=== PATIENT | female | born 1940 | race Caucasian/White ===

== ENCOUNTER 2020-11-11 10:16 | Day surgery (SDC) | payer OTHER, SELFPAY ==
[2020-11-05 10:05] VITALS: BMI 25.3
--- NOTE | 2020-11-07 09:01 | MHC.SHP ---
Pre-Procedural Eval Section A The patient is an INPATIENT: No The History & Physical has been completed within 30 days and I have reviewed it.: Yes Section B Chief Complaint: Cataract Left Eye Allergies: Allergies Allergy/AdvReac Type Severity Reaction Status Date / Time cephalexin [CEPHALEXIN] Allergy Intermediate Rash Verified 11/05/20 10:10 clarithromycin [From BIAXIN] Allergy Intermediate Rash Verified 11/05/20 10:10 Plan Diagnosis/Plan: Unchanged Patient has been examined and remains a candidate for the planned procedure
--- NOTE | 2020-11-08 13:43 | HO.ANESPROP2 ---
Documented by User: Jane Samuels 11/08/20 13:44 HPI - Anesthesia Eval Consult details Narrative: 80yo F for Cataract Extraction [facility] Past Medical History Medical History (Updated 11/05/20 @ 10:10 by Lexi Miranda) Arthritis Elevated cholesterol HTN (hypertension) Lab test negative for COVID-19 virus Wears partial dentures Surgical History Surgical History (Updated 11/05/20 @ 10:07 by Lexi Miranda) H/O colonoscopy Hx of right cataract extraction Hx of tubal ligation Social History Social History Smoking Status: Former smoker Smoked in Last 30 Days: No Smoking Quit Date: 06/2020 Use of substances other than those prescribed or required for medical reasons: Yes Substance Use Type Other:: vapes marijuana Substance Use Frequency: Occasionally Have you been hit, kicked, punched, or otherwise hurt by someone within the past year? If so, by whom?: No Advance Directives Information Provided: No Recently lost weight without trying: No Meds Allergies Allergy/AdvReac Type Severity Reaction Status Date / Time cephalexin [CEPHALEXIN] Allergy Intermediate Rash Verified 11/05/20 10:10 clarithromycin [From BIAXIN] Allergy Intermediate Rash Verified 11/05/20 10:10 Home Medications Medication Instructions Recorded Confirmed Type triamterene-hydrochlorothiazid 1 cap PO DAILY 11/05/20 11/05/20 History Exam Exam Date and Time: November 08, 2020 1343 Height,Weight and Vital Signs: Height 5 ft 4.5 in Weight 68.039 kg Assessment and Plan Assessment Anesthesia Assessment: Chart Reviewed Documented by User: Radhika Olmedo 11/11/20 12:14 [facility] Past Medical History Medical History (Updated 11/05/20 @ 10:10 by Lexi Miranda) Arthritis Elevated cholesterol HTN (hypertension) Lab test negative for COVID-19 virus Wears partial dentures Surgical History Surgical History (Updated 11/05/20 @ 10:07 by Lexi Miranda) H/O colonoscopy Hx of right cataract extraction Hx of tubal ligation Social History Social History Smoking Status: Former smoker Smoked in Last 30 Days: No Smoking Quit Date: 06/2020 Use of substances other than those prescribed or required for medical reasons: Yes Substance Use Type Other:: vapes marijuana Substance Use Frequency: Occasionally Have you been hit, kicked, punched, or otherwise hurt by someone within the past year? If so, by whom?: No Advance Directives Information Provided: No Recently lost weight without trying: No Meds Allergies Allergy/AdvReac Type Severity Reaction Status Date / Time cephalexin [CEPHALEXIN] Allergy Intermediate Rash Verified 11/05/20 10:10 clarithromycin [From BIAXIN] Allergy Intermediate Rash Verified 11/05/20 10:10 Home Medications Medication Instructions Recorded Confirmed Type triamterene-hydrochlorothiazid 1 cap PO DAILY 11/05/20 11/05/20 History Exam Airway Mallampati Class: II (Missing multiple teeth through out mouth) TM Dist: >3cm Neck ROM: Full Heart: RRR Lungs: CTA BL Assessment and Plan Assessment Anesthesia Assessment: Anesthesia Plan Discussed and Chart Reviewed Final Anesthetic Review NPO: Yes ASA Class: II Final Preanesthetic Review: Meds/Allgs Chart Reviewed and Consent Obtained/Reviewed Patient Risk: Low Procedure Risk: Low Anesthetic Plan Anesthetic Plan: MAC: Disposition: Standard PACU
[2020-11-11] MEDS: Lactated Ringers 500 ML 50 ML IV (12:09)
[2020-11-11] MEDS: Tetracaine HCl/PF 0.5% Oph Sol 4 ML DROPS 1 DROP EYE-LEFT (12:10)
[2020-11-11] MEDS: Tropicamide 1 % Ophth Sol 3 ML BTL 1 DROP EYE-LEFT ×3 (12:10→12:20)
[2020-11-11] MEDS: Phenylephrine HCL 2.5% Oph SoL 2 ML BOTTLE 1 DROP EYE-LEFT ×3 (12:13→12:21)
[2020-11-11 13:12] VITALS: BP 146/52; PULSE 54; RESP 14; TEMP 36.5; O2SAT 98
--- NOTE | 2020-11-11 13:12 | HO.PNOPHT ---
Ophthalmology Procedure Procedure Date of Service: 11/11/20 Ophthalmology Viscoelastic: Healon Duet Dual Pack Pro Ophthalmology Lenses: TECNIS [id number] (24.5) Procedure Notes: PREOPERATIVE DIAGNOSIS: Decreased visual acuity left eye secondary to cataract POSTOPERATIVE DIAGNOSIS: Same PROCEDURE: Left cataract extraction with intraocular lens insertion SURGEON: Ulysses Zheng M.D. ANESTHESIA: Topical/MAC ESTIMATED BLOOD LOSS: None COMPLICATIONS: None After obtaining informed consent, the patient was brought to the operation room suite and placed in the supine position. After adequate sedation per anesthesia, topical drops of Tetracaine were given to the left eye. The eye was then prepped and draped in the usual sterile fashion. The operating room microscope was then positioned over the operative eye and a lid speculum placed. A paracentesis was created. Viscoelastic was then instilled into the anterior chamber. A three plane incision was then created temporally, utilizing a 2.85 mm keratome. Capsulotomy forceps were then utilized to create a circular tear capsulotomy. Hydrodissection and hydrodelineation were carried out until adequate mobilization of the nucleus occurred. Phacoemulsification was then utilized to remove the dense central nucleus followed by removal of the cortical material utilizing the automated aspiration irrigation unit. Viscoat elastic was instilled into the posterior capsular bag followed by placement of a posterior chamber intraocular lens without difficulty. The residual Viscoat elastic was then removed utilizing the automated IA machine. The wound was check and found to be watertight. The patient tolerated the procedure well and the lid speculum was removed. Intracameral injection of Vigamox 0.1 mL followed by a subtenon injection of Kenalog-40 0.2 mL were administered. The patient will be seen in the a.m.
--- NOTE | 2020-11-11 13:18 | HO.POSTANES ---
Post Anesthesia Evaluation Post Anesthesia Evaluation Vital Signs: stable Anesthesia: Monitored Mental Status: Awake Pain Control: Satisfactory Nausea/Vomiting: None Hydration: Adequate Anesthesia-Related Issues: No Anes. Related Issues
== END 2020-11-11 13:33 | disposition home or self-care (01) ==
PROVIDERS: Visit Provider Ophthalmology
PROC: (CPT 66985; principal; 2020-11-11 12:30)
DX: H25.12 Age-related nuclear cataract, left eye (principal); H54.7 Unspecified visual loss; Z83.511 Family history of glaucoma; Z96.1 Presence of intraocular lens; J44.9 Chronic obstructive pulmonary disease, unspecified; I10 Essential (primary) hypertension; Z98.51 Tubal ligation status
CPT/HCPCS: 66984; J2250; J3010; J3300; V2632